=== PATIENT | female | born 1935 | race Caucasian/White ===

== ENCOUNTER → 2017-10-23 | Outpatient (CLI) | payer MEDICARE, OTHER ==
[~2017-10-23] MED LIST: ACETAMINOPHEN325 M1 PO; ACTONEL150 MG PO; ALLEGRA ALLERGY60 MG PO; ALLEGRA180 MG PO; ASPIRIN EC81 M1 PO; ATIVAN0.5 MG; BUSPAR 5 MG TABL5 M1; CALCIUM 600 +1 EAC1 PO; CARDIZEM CD120 MG PO; CLARITIN10 MG; DILTIAZEM ER180 M1 PO; DOCUSATE SODIU100 MG; ERGOCALCIF50000 UNI1; FERROUS SULFAT325 M1; FISH OIL SOFTG1 EACH PO; FLONASE 0.05%50 MCG NASAL; GABAPENTIN 100100 MG PO; HYDROCODON-ACE1 EACH; LETROZOLE2.5 MG PO; LEXAPRO20 MG PO; LIPITOR20 MG; MAGNESIUM250 M1 PO; METAMUCIL PAC1 UDPK1; MIRALAX255 GM PO; NAMENDA 5 MG TAB5 M1; RESTASIS1 EACH OPHTHALMIC; TRANDATE100 MG; VIT D2; WELLBUTRIN 75 M75 M1 PO
== END ==
LOC: M.RAD 15:25
DX: M81.0 Age-related osteoporosis without current pathological fracture (principal); Z78.0 Asymptomatic menopausal state

== ENCOUNTER → 2017-10-25 | Outpatient (CLI) | payer MEDICARE, OTHER ==
[2017-10-25 09:46] LABS: ABSOLUTE EOSINOPHILS 0.2 thou/uL (0.0-0.7); ABSOLUTE LYMPHOCYTES 1.5 thou/uL (0.8-5.3); ABSOLUTE MONOCYTES 0.6 thou/uL (0.0-1.2); BASOPHILS 0.6 %; EOSINOPHILS 3.5 %; HEMATOCRIT 41.7 % (37.0-47.0); LYMPHOCYTES 28.8 %; MCH 31.3 pg (26.0-34.0); MCHC 33.5 g/dL (28.0-37.0); MCV 93.4 fL (80.0-100.0); MONOCYTES 11.1 %; MPV 7.7 fl. (7.2-11.1); NUCLEATED RBCS 0 /100WBC; PLATELET COUNT* 235 thou/uL (150-400); RBC 4.47 mil/uL (4.20-5.00); RDW-CV 13.5 % (10.5-14.5); WBC 5.4 thou/uL (4.0-11.0)
[2017-10-25 09:59] LABS: CREATININE 0.8 mg/dL (0.6-1.3); POTASSIUM 4.1 mmol/L (3.5-5.1); TOTAL BILIRUBIN 0.8 mg/dL (<0.1-1.0); TOTAL PROTEIN 7.5 g/dL (6.4-8.2)
[2017-10-25 10:59] LABS: ESR (SEDRATE) 2 mm/hr (0-30)
[2017-10-25 18:09] LABS: IgA 139 mg/dL (64-422); IgG 966 mg/dL (700-1600); IgM 71 mg/dL (26-217)
[2017-10-28 11:11] LABS: ANA INTERPRETATION Negative (Negative)
== END ==
LOC: M.LAB 09:18
PROVIDERS: Psychiatry & Neurology Neuromuscular Medicine
DX: G62.9 Polyneuropathy, unspecified (principal); M48.062 Spinal stenosis, lumbar region with neurogenic claudication; M81.0 Age-related osteoporosis without current pathological fracture; M62.9 Disorder of muscle, unspecified; R53.1 Weakness

== ENCOUNTER → 2018-01-16 | Outpatient (CLI) | payer MEDICARE, OTHER | LOC: M.ULTRA 09:08 | DX: M79.89 Other specified soft tissue disorders (principal); M79.661 Pain in right lower leg; M79.662 Pain in left lower leg; I87.2 Venous insufficiency (chronic) (peripheral); E78.00 Pure hypercholesterolemia, unspecified; M81.0 Age-related osteoporosis without current pathological fracture ==

== ENCOUNTER → 2018-05-01 | Outpatient (CLI) | payer MEDICARE, OTHER | LOC: M.RAD 15:28 | DX: R05 Cough (principal); R53.83 Other fatigue ==

== ENCOUNTER → 2018-08-08 | Outpatient (CLI) | payer MEDICARE, OTHER | LOC: M.CT 07-30 10:26 → M.ULTRA 12:50 | DX: I65.23 Occlusion and stenosis of bilateral carotid arteries (principal); R07.89 Other chest pain; R06.89 Other abnormalities of breathing; I63.9 Cerebral infarction, unspecified; Z85.3 Personal history of malignant neoplasm of breast; Z88.5 Allergy status to narcotic agent; Z88.8 Allergy status to other drugs, medicaments and biological substances; Z88.2 Allergy status to sulfonamides; Z87.898 Personal history of other specified conditions ==